=== PATIENT | male | born 1970 | race Caucasian/White ===

== ENCOUNTER 2022-01-05 06:18 | Emergency (ER) | payer MEDICARE, MEDICAID, OTHER, SELFPAY ==
--- NOTE | ~2022-01-05 | XR_ITS ---
EXAMINATION: CR RIGHT ANKLE. CR RIGHT KNEE. CLINICAL INFORMATION: Fall. Pain. COMPARISON: None TECHNIQUE: 3 views of the right ankle. 4 views of the right knee. FINDINGS: Right ankle: Mild diffuse soft tissue swelling is seen over the ankle, more pronounced on the medial aspect. No ankle joint effusion is noted. No definite acute fracture or dislocation is seen. The ankle mortise is symmetric with mild degenerative changes seen in the tibiotalar joint. No radiopaque foreign body in the soft tissues. Right knee: No acute fracture or dislocation. No significant knee joint effusion. Mild enthesopathic spurring at the superior pole of the patella. Joint space height well maintained in all 3 compartments. XR/XR ankle RT 2V IMPRESSION: 1. No acute fracture of the right ankle or right knee. 2. Mild soft tissue swelling over the right ankle, more pronounced on the medial aspect.
--- NOTE | ~2022-01-05 | XR_ITS ---
EXAMINATION: CR RIGHT ANKLE. CR RIGHT KNEE. CLINICAL INFORMATION: Fall. Pain. COMPARISON: None TECHNIQUE: 3 views of the right ankle. 4 views of the right knee. FINDINGS: Right ankle: Mild diffuse soft tissue swelling is seen over the ankle, more pronounced on the medial aspect. No ankle joint effusion is noted. No definite acute fracture or dislocation is seen. The ankle mortise is symmetric with mild degenerative changes seen in the tibiotalar joint. No radiopaque foreign body in the soft tissues. Right knee: No acute fracture or dislocation. No significant knee joint effusion. Mild enthesopathic spurring at the superior pole of the patella. Joint space height well maintained in all 3 compartments. XR/XR knee RT 3V IMPRESSION: 1. No acute fracture of the right ankle or right knee. 2. Mild soft tissue swelling over the right ankle, more pronounced on the medial aspect.
[2022-01-05 06:38] VITALS: BP 125/52; PULSE 81; RESP 16; TEMP 37; O2SAT 100; BMI 27.8
[2022-01-05 06:57] LABS: Hematocrit 30.7 % (42.0-52.0); Hemoglobin 9.8 g/dl (14.0-18.0); Mean Corpuscular HGB Conc 31.9 g/dl (31.0-36.0); Mean Corpuscular Hemoglobin 23.2 pg (27.0-33.0); Mean Corpuscular Volume 72.6 fL (80.0-98.0); Mean Platelet Volume 9.5 fL (9.4-12.4); Platelet Count 166 X10*3/uL (160-400); Red Blood Count 4.23 X10*6/uL (4.60-5.80); Red Cell Distribution Width 18.3 % (11.0-16.0); White Blood Count 9.2 X10*3/uL (4.8-10.8)
[2022-01-05 07:15] LABS: Lactic Acid 1.8 mmol/L (0.5-2.0)
[2022-01-05 07:35] LABS: Alanine Aminotransferase 12 U/L (0-40); Albumin Level 3.5 g/dL (3.5-5.0); Alkaline Phosphatase 123 U/L (39-117); Anion Gap 14 (12-20); Aspartate Amino Transferase 14 U/L (5-37); Bilirubin Total 1.2 mg/dL (0.0-1.0); Blood Urea Nitrogen 14 mg/dL (9-16); Calcium 9.4 mg/dL (8.4-10.2); Carbon Dioxide 24 mmol/L (22-29); Chloride 97 mmol/L (96-108); Creatinine Clr Calc Pharmacy 89.8; Estimated Glomerular Filt Rate > 60; Glucose Random 337 mg/dL (60-115); Potassium 4.1 mmol/L (3.3-5.1); Sodium 131 mmol/L (135-145); Total Protein 7.6 g/dL (6.5-8.0)
--- NOTE | 2022-01-05 08:09 | ED.LOWEXIN ---
HPI - Extremity Injury (Lower) General Chief Complaint: Extremity Injury, Lower Stated Complaint: r leg knee ankle pain fell two days ago Time Seen by Provider: 01/05/22 07:34 Source: patient Mode of arrival: ambulatory Limitations: no limitations History of Present Illness HPI Narrative: 51-year-old male who tripped and fell twisting her right ankle and landing on the right knee presented with pain to the right ankle with swelling, patient declined any fever chills, patient also noticed hotness and redness around the right ankle. No head or neck pain or injury. Related Data Previous Rx's Medication Instructions Recorded doxycycline hyclate 100 mg tablet 100 mg PO BID #20 tabs 01/05/22 oxycodone 5 mg tablet 5 mg PO BID PRN pain #8 tabs 01/05/22 Allergies Allergy/AdvReac Type Severity Reaction Status Date / Time No Known Allergies Allergy Unverified 11/10/19 15:49 [No Known Allergies*] Review of Systems Review of Systems: All other systems are reviewed and are negative Constitutional: Reports as per HPI and Reports no additional constitutional complaints Eyes: Reports as per HPI and Reports no additional eye complaints Reports system reviewed and no additional complaints, except as documented Cardiovascular: Reports as per HPI and Reports no additional cardiovascular complaints Respiratory: Reports as per HPI and Reports no additional respiratory complaints Gastrointestinal: Reports as per HPI and Reports no additional gastrointestinal complaints Genitourinary: Reports no additional female genitourinary complaints Musculoskeletal: Reports no additional musculoskeletal complaints Skin/Breast: Reports system reviewed and no additional complaints, except as docu Psychiatric: Reports no additional psychiatric complaints Endocrine: Reports no additional endocrine complaints Hematologic/Lymphatic: Reports no additional hematologic/lymphatic complaints Allergic/Immunologic: Reports no additional allergic/immunologic complaints Reports system reviewed and no additional complaints, except as documented and Reports Abnormal speech present [facility] Social History Social History Alcohol intake: former Smoked in Last 30 Days: Yes Advance Directives: No Advance Directives Information Provided: Yes Physical Exam Vital Signs: Vital Signs: Last Vital Signs Temp 98.0 F 01/05/22 08:35 Pulse 78 01/05/22 08:35 Resp 18 01/05/22 08:35 BP 121/50 L 01/05/22 08:35 Pulse Ox 99 01/05/22 08:35 O2 Del Method 01/05/22 08:35 BMI result Body Mass Index 27.8 Vital signs have been reviewed as appeared to be correct. Blood pressure normal. Heart rate normal. Respiration rate normal. Temperature normal. Oxygen saturation normal. Appearance: Alert. Oriented X3. No acute distress. Head: Normal external exam. Normocephalic. Atraumatic. No Bennett signs noted. No raccoon eyes noted Eyes: PERRLA. EOMI. Conjunctiva and sclera normal. Eyelids normal. ENT: TM's Normal. Pharynx normal. Uvula midline. Moist mucous membranes. No trismus noted. No drooling noted. No muffled voice noted. Neck: Normal inspection. Neck supple. FROM. No adenopathy. Thyroid Normal. No meningeal signs. No neck mass noted. CVS: Normal heart rate and rhythm. Heart sound normal. No murmurs noted. Pulses normal throughout. Respiratory: No respiratory distress. Painless inspiration. Breath sounds normal. No wheezes/rales/rhonchi noted. Chest nontender. No accessory muscle usage noted or decreased air movement noted. Abdomen: Soft and nontender. Bowel sounds normal in all 4 quadrants. No distention noted. No organomegaly noted. No visible injury noted. Back: No CVA tenderness. Full range of motion noted. Skin: Skin warm and dry. Normal skin color. Normal skin turgor. No rashes/lesions/lacerations noted. Extremities: Right knee: Mild tenderness of her patella, no step-off, no deformity, no swelling or joint effusion. Right ankle, swelling redness, and hotness of the right ankle no deformity, no step-off, neurovascularly intact. Neuro: Oriented X 3. Cranial nerve exam: II-XII are grossly intact No motor deficit. No sensory deficit. Reflexes normal. Course Course Course Narrative: 51-year-old male status post fall with right ankle twist patient is not known to be diabetic, have a right ankle cellulitis will start patient on antibiotic doxycycline and pain medication oxycodone. Patient is not known to be diabetic foot blood sugar found to be 337 patient was instructed to follow-up with his PCP for further workup for diabetes. Medications Administered Discontinued Medications Generic Name Dose Route Start Last Admin Trade Name Freq PRN Reason Stop Dose Admin Doxycycline Monohydrate 100 mg 01/05/22 08:06 01/05/22 08:34 Doxycycline Monohydrate 100 Mg Capsule PO 01/05/22 08:07 100 mg ONCE ONE Administration Oxycodone HCl 5 mg 01/05/22 08:06 01/05/22 08:33 Oxycodone Hcl Immed Release 5 Mg Tablet PO 01/05/22 08:07 5 mg ONCE ONE Administration MDM - Extremity Injury (Lower) Lab Data Attestation: I reviewed the patient's lab results. Result diagrams: 01/05/22 06:49 01/05/22 06:49 Labs: Lab Results 01/05/22 01/05/22 01/05/22 Range/Units 06:49 06:49 06:49 WBC 9.2 (4.8-10.8) X10*3/uL RBC 4.23 L (4.60-5.80) X10*6/uL Hgb 9.8 L (14.0-18.0) g/dl Hct 30.7 L (42.0-52.0) % MCV 72.6 L (80.0-98.0) fL MCH 23.2 L (27.0-33.0) pg MCHC 31.9 (31.0-36.0) g/dl RDW 18.3 H (11.0-16.0) % Plt Count 166 (160-400) X10*3/uL MPV 9.5 (9.4-12.4) fL Absolute Nucleated RBC 0.000 (0.0-0.012) X10*3/uL Nucleated RBC % (auto) 0.0 (0.0-0.2) /100WBC Sodium 131 L (135-145) mmol/L Potassium 4.1 (3.3-5.1) mmol/L Chloride 97 (96-108) mmol/L Carbon Dioxide 24 (22-29) mmol/L Anion Gap 14 (12-20) BUN 14 (9-16) mg/dL Creatinine 1.08 (0.5-1.4) mg/dL Estim Creat Clear Calc 89.8 Estimated GFR > 60 Random Glucose 337 H (60-115) mg/dL Lactic Acid 1.8 (0.5-2.0) mmol/L Calcium 9.4 (8.4-10.2) mg/dL Total Bilirubin 1.2 H (0.0-1.0) mg/dL AST 14 (5-37) U/L ALT 12 (0-40) U/L Alkaline Phosphatase 123 H (39-117) U/L Total Protein 7.6 (6.5-8.0) g/dL Albumin 3.5 (3.5-5.0) g/dL Imaging Data Right knee/ankle x-ray: Attestation: I personally reviewed and interpreted this imaging study as follows: Radiologist's impression: 1.? No acute fracture of the right ankle or right knee. 2.? Mild soft tissue swelling over the right ankle, more pronounced on the medial aspect. ? Discharge Plan Discharge Clinical Impression: Ankle sprain and strain, Cellulitis of right ankle, Contusion of knee, Hyperglycemia Patient Disposition: Home, Self-Care Instructions: Ankle Sprain (ED), Cellulitis (ED) Prescriptions: New doxycycline hyclate 100 mg tablet 100 mg PO BID Qty: 20 0RF oxycodone 5 mg tablet 5 mg PO BID PRN (Reason: pain) Qty: 8 0RF Rx Instructions: Partial Fill upon patient request. Referrals: Junaid Mckeon MD [Primary Care Provider] -
[2022-01-05] MEDS: oxyCODONE HCl Immed Release 5 MG TABLET PO (08:33)
[2022-01-05] MEDS: Doxycycline Monohydrate 100 MG CAPSULE PO (08:34)
[2022-01-05 08:35] VITALS: BP 121/50; PULSE 78; RESP 18; TEMP 36.7; O2SAT 99
--- NOTE | 2022-01-05 08:42 | PC.NURSE ---
patient a/ox4 . tiorla . heart rate regular at 70 beats per minute . lungs clear throughout , breathing even and unlabored . abdomen soft . rebounded tenderness noted in lower right side . patient has a hx of cirrhosis . postive bowel sounds in all four quadrants . right lower ankle leg and ankle red swollen and warm to touch patient reports that it has been like this for three days and progressively getting worse . labs and cultures sent . patient has been medicated with antibiotic and oxycodone for pain level of 8 out of 10 pain level . patient aware of plan of care .
--- NOTE | 2022-01-05 10:57 | PC.NURSE ---
patient a/ox4 . breathing even and unlabored . went over discharge instructions as ordered by provider . patient informed to complete course of antibiotics as prescribed . patient to follow up with primary care . patient to return to Ed if symptoms worsen . no questions at this time .
== END 2022-01-05 11:02 | disposition home or self-care (01) ==
PROVIDERS: Emergency Provider Emergency Medicine; PCP Internal Medicine
DX: S93.401A Sprain of unspecified ligament of right ankle, initial encounter (principal); M25.571 Pain in right ankle and joints of right foot; L03.115 Cellulitis of right lower limb; E11.65 Type 2 diabetes mellitus with hyperglycemia; M25.561 Pain in right knee; X50.1XXA Overexertion from prolonged static or awkward postures, initial encounter; Y93.9 Activity, unspecified; Y92.9 Unspecified place or not applicable; Y99.9 Unspecified external cause status; Z79.899 Other long term (current) drug therapy
CPT/HCPCS: 36415; 73562; 73600; 80053; 83605; 85027; 87040; 99284

== ENCOUNTER 2022-03-06 19:08 | Emergency (ER) | payer MEDICARE, OTHER, SELFPAY ==
--- NOTE | 2022-03-06 19:12 | ED_ITS ---
HPI - General Adult General Chief complaint: General Medical Stated complaint: High BS(595) per EMS Time Seen by Provider: 03/06/22 19:12 Source: patient Mode of arrival: ambulatory Limitations: no limitations History of Present Illness HPI narrative: Patient's history of alcoholic cirrhosis was seen here on 01/05/2022 for foot fracture at that time blood sugar was 337 patient advised to follow-up with PCP today patient had labs done which showed blood sugar of 659 patient been complaining of weakness for take increased thirst and urination on arrival patient's blood sugar was 417 patient denied any abdominal pain no use of steroids Related Data Previous Rx's Medication Instructions Recorded doxycycline hyclate 100 mg tablet 100 mg PO BID #20 tabs 01/05/22 oxycodone 5 mg tablet 5 mg PO BID PRN pain #8 tabs 01/05/22 blood-glucose meter #1 ea 03/06/22 gabapentin 300 mg capsule 300 mg PO BID #60 caps 03/06/22 (Neurontin) glipizide 10 mg tablet, extended 10 mg PO DAILY #30 tabs 03/06/22 release 24 hr metformin 500 mg tablet 500 mg PO BID #60 tabs 03/06/22 Allergies Allergy/AdvReac Type Severity Reaction Status Date / Time No Known Allergies Allergy Verified 03/06/22 19:28 [No Known Allergies*] Review of Systems Review of Systems: Yes all other systems are reviewed and are negative [facility] Past Medical History Medical History Alcoholic cirrhosis Diabetes mellitus Neuropathy Social History Social History Alcohol intake: former Smoked in Last 30 Days: Yes Use of substances other than those prescribed or required for medical reasons: Yes Substance Use Type: Marijuana Advance Directives: No Advance Directives Information Provided: No Physical Exam ED Vital Signs: Vital Signs - 24 hr 03/06/22 19:18 03/06/22 21:07 Temperature 98.1 F Pulse Rate 67 65 Respiratory Rate 20 16 Blood Pressure 133/69 125/55 L Pulse Oximetry 97 97 Oxygen Delivery Method Room Air Room Air BMI result Body Mass Index 31.1 Appearance: Alert. Oriented X3. No acute distress. Eyes: PERRLA, No Nystagmus ENT: Pharynx normal. Oral Mucosa moist Neck: Normal inspection. Neck supple. CVS: Normal heart rate and rhythm. Pulses normal. Respiratory: No respiratory distress. Equal air entry bilateral, no wheezing/rales/rhonchi Abdomen: Soft and nontender. Bowel sounds are present, no mass palpable, no CVA tenderness Skin: Skin warm and dry. Normal skin color. Normal skin turgor. Extremities: No lower extremity edema. No calf tenderness Neuro: Oriented X 3. No motor deficit. No sensory deficit.No cerebellar signs , cranial nerves II-XII intact Medications Administered Discontinued Medications Generic Name Dose Route Start Last Admin Trade Name Freq PRN Reason Stop Dose Admin Sodium Chloride 1,000 mls @ 999 mls/hr 03/06/22 19:39 03/06/22 21:01 Ns IV 03/06/22 20:39 Infused .Q1H1M ONE Infusion Insulin Glargine 20 unit 03/06/22 19:39 03/06/22 19:52 Insulin Glargine,Hum.Rec.Anlog 100 Unit/Ml 10 Ml Vial SUBCUT 03/06/22 19:40 20 unit ONCE ONE Administration Insulin Human Lispro 14 unit 03/06/22 19:39 03/06/22 19:52 Insulin Lispro 100 Unit/Ml 3 Ml Vial SUBCUT 03/06/22 19:40 14 unit ONCE ONE Administration Metformin HCl 500 mg 03/06/22 21:00 03/06/22 21:05 Metformin Hcl 500 Mg Tablet PO 03/06/22 21:01 500 mg ONCE ONE Administration Medical Decision Making Medical Decision Making [facility] Narrative: Patient with new onset diabetes with hyperglycemia nonketotic was given insulin and fluids blood sugar improved to 371 patient was given oral hypoglycemic metformin advised to follow up with PCP Lab Data [facility] Lab Attestation statement: I reviewed the patient's lab results. 03/06/22 19:52 03/06/22 19:52 Labs: Lab Results 03/06/22 03/06/22 03/06/22 Range/Units 19:20 19:52 19:52 WBC 7.8 (4.8-10.8) X10*3/uL RBC 4.20 L (4.60-5.80) X10*6/uL Hgb 9.5 L (14.0-18.0) g/dl Hct 30.0 L (42.0-52.0) % MCV 71.4 L (80.0-98.0) fL MCH 22.6 L (27.0-33.0) pg MCHC 31.7 (31.0-36.0) g/dl RDW 15.4 (11.0-16.0) % Plt Count 202 (160-400) X10*3/uL MPV 9.9 (9.4-12.4) fL Immature Gran % (Auto) 0.1 (0.0-0.4) % Neut % (Auto) 66.5 (45-73) % Lymph % (Auto) 19.8 L (20-40) % Piute % (Auto) 11.8 H (2-11) % Eos % (Auto) 1.2 (0-4) % Baso % (Auto) 0.6 (0-2) % Lymph # (Auto) 1.5 (1.2-4.9) X10*3/uL Piute # (Auto) 0.9 (0.1-1.2) X10*3/uL Eos # (Auto) 0.1 (0.0-0.4) X10*3/uL Baso # (Auto) 0.1 (0.0-0.2) X10*3/uL Abs Immat Gran (auto) 0.01 (0.00-0.03) X10*3/uL Absolute Neuts (auto) 5.2 (2.0-8.3) x10*3/uL Absolute Nucleated RBC 0.000 (0.0-0.012) X10*3/uL Nucleated RBC % (auto) 0.0 (0.0-0.2) /100WBC Sodium 130 L (135-145) mmol/L Potassium 4.4 (3.3-5.1) mmol/L Chloride 97 (96-108) mmol/L Carbon Dioxide 24 (22-29) mmol/L Anion Gap 13 (12-20) BUN 13 (9-16) mg/dL Creatinine 1.25 (0.5-1.4) mg/dL Estim Creat Clear Calc 88.2 Estimated GFR > 60 POC Glucose 417 H* (60-115) mg/dL Random Glucose 468 H* (60-115) mg/dL Calcium 8.9 (8.4-10.2) mg/dL Total Bilirubin 1.1 H (0.0-1.0) mg/dL AST 21 (5-37) U/L ALT 14 (0-40) U/L Alkaline Phosphatase 115 (39-117) U/L Total Protein 7.4 (6.5-8.0) g/dL Albumin 3.3 L (3.5-5.0) g/dL Lipase 20 (8-78) U/L 03/06/22 Range/Units 20:28 WBC (4.8-10.8) X10*3/uL RBC (4.60-5.80) X10*6/uL Hgb (14.0-18.0) g/dl Hct (42.0-52.0) % MCV (80.0-98.0) fL MCH (27.0-33.0) pg MCHC (31.0-36.0) g/dl RDW (11.0-16.0) % Plt Count (160-400) X10*3/uL MPV (9.4-12.4) fL Immature Gran % (Auto) (0.0-0.4) % Neut % (Auto) (45-73) % Lymph % (Auto) (20-40) % Piute % (Auto) (2-11) % Eos % (Auto) (0-4) % Baso % (Auto) (0-2) % Lymph # (Auto) (1.2-4.9) X10*3/uL Piute # (Auto) (0.1-1.2) X10*3/uL Eos # (Auto) (0.0-0.4) X10*3/uL Baso # (Auto) (0.0-0.2) X10*3/uL Abs Immat Gran (auto) (0.00-0.03) X10*3/uL Absolute Neuts (auto) (2.0-8.3) x10*3/uL Absolute Nucleated RBC (0.0-0.012) X10*3/uL Nucleated RBC % (auto) (0.0-0.2) /100WBC Sodium (135-145) mmol/L Potassium (3.3-5.1) mmol/L Chloride (96-108) mmol/L Carbon Dioxide (22-29) mmol/L Anion Gap (12-20) BUN (9-16) mg/dL Creatinine (0.5-1.4) mg/dL Estim Creat Clear Calc Estimated GFR POC Glucose 371 H* (60-115) mg/dL Random Glucose (60-115) mg/dL Calcium (8.4-10.2) mg/dL Total Bilirubin (0.0-1.0) mg/dL AST (5-37) U/L ALT (0-40) U/L Alkaline Phosphatase (39-117) U/L Total Protein (6.5-8.0) g/dL Albumin (3.5-5.0) g/dL Lipase (8-78) U/L Discharge Plan Discharge Clinical Impression: Diabetes mellitus Patient Disposition: Home, Self-Care Instructions: Type 2 Diabetes in Adults: New Diagnosis (ED) Additional Instructions: Drink plenty of fluids Take diabetic medication as prescribed diet restrictions advised Check blood sugar twice daily Report to the ER/PCP blood sugar higher than 300 Follow-up with diabetic specialist Prescriptions: New metformin 500 mg tablet 500 mg PO BID Qty: 60 2RF glipizide 10 mg tablet extended release 24hr 10 mg PO DAILY Qty: 30 2RF (DME) blood-glucose meter Kit See Rx Instructions .Route Qty: 1 0RF Rx Instructions: As directed gabapentin [Neurontin] 300 mg capsule 300 mg PO BID Qty: 60 2RF No Action doxycycline hyclate 100 mg tablet 100 mg PO BID Qty: 20 0RF oxycodone 5 mg tablet 5 mg PO BID PRN (Reason: pain) Qty: 8 0RF Rx Instructions: Partial Fill upon patient request. Referrals: Lexi Juares MD [Physician] - 3 days Interventions: ED Discharge Assessment Last Done: 03/06/22 21:13 Discharge Date/Time: 03/06/22 21:15
[2022-03-06 19:18] VITALS: BP 122/46; BP 133/69; PULSE 67; PULSE 70; RESP 20; TEMP 36.7; O2SAT 100; O2SAT 97; BMI 31.1
[2022-03-06 19:24] LABS: Glucose, Whole Blood 417 mg/dL (60-115)
[2022-03-06] MEDS: Insulin Lispro 100 UNIT/ML 3 ML VIAL 14 UNIT SUBCUT (19:52)
[2022-03-06] MEDS: 0.9 % Sodium Chloride 1,000 ML 999 ML IV (19:52)
[2022-03-06] MEDS: Insulin Glargine,Hum.rec.anlog 100 UNIT/ML 10 ML VIAL 20 UNIT SUBCUT (19:52)
[2022-03-06 19:56] LABS: MANUAL DIFF FLAG NO
--- NOTE | 2022-03-06 20:01 | PC.NURSE ---
PT A&Ox4, reports 5/10 tolerable pain of pins and needles to hands and feet. States feeling cotton mouth for a few weeks and dry mouth . Meds given as documented.
[2022-03-06 20:02] LABS: Basophils Absolute Auto 0.1 X10*3/uL (0.0-0.2); Basophils Percent Auto 0.6 % (0-2); Eosinophils Absolute Auto 0.1 X10*3/uL (0.0-0.4); Eosinophils Percent Auto 1.2 % (0-4); Hemoglobin 9.5 g/dl (14.0-18.0); Imm Gran Abs Auto 0.01 X10*3/uL (0.00-0.03); Imm Gran Pct Auto 0.1 % (0.0-0.4); Lymphocytes Absolute Auto 1.5 X10*3/uL (1.2-4.9); Lymphocytes Percent Auto 19.8 % (20-40); Mean Corpuscular HGB Conc 31.7 g/dl (31.0-36.0); Mean Corpuscular Hemoglobin 22.6 pg (27.0-33.0); Mean Corpuscular Volume 71.4 fL (80.0-98.0); Mean Platelet Volume 9.9 fL (9.4-12.4); Monocytes Absolute Auto 0.9 X10*3/uL (0.1-1.2); Monocytes Percent Auto 11.8 % (2-11); Neutrophils Absolute Auto 5.2 x10*3/uL (2.0-8.3); Neutrophils Percent Auto 66.5 % (45-73); Platelet Count 202 X10*3/uL (160-400); Red Cell Distribution Width 15.4 % (11.0-16.0); White Blood Count 7.8 X10*3/uL (4.8-10.8)
[2022-03-06 20:24] LABS: Alanine Aminotransferase 14 U/L (0-40); Albumin Level 3.3 g/dL (3.5-5.0); Alkaline Phosphatase 115 U/L (39-117); Anion Gap 13 (12-20); Aspartate Amino Transferase 21 U/L (5-37); Bilirubin Total 1.1 mg/dL (0.0-1.0); Blood Urea Nitrogen 13 mg/dL (9-16); Calcium 8.9 mg/dL (8.4-10.2); Carbon Dioxide 24 mmol/L (22-29); Chloride 97 mmol/L (96-108); Creatinine Clr Calc Pharmacy 88.2; Estimated Glomerular Filt Rate > 60; Glucose Random 468 mg/dL (60-115); Lipase 20 U/L (8-78); Potassium 4.4 mmol/L (3.3-5.1); Sodium 130 mmol/L (135-145); Total Protein 7.4 g/dL (6.5-8.0)
--- NOTE | 2022-03-06 20:29 | PC.NURSE ---
Recheck POC 371. Provider notified. No new orders at this time.
[2022-03-06 20:31] LABS: Glucose, Whole Blood 371 mg/dL (60-115)
[2022-03-06] MEDS: metFORMIN HCl 500 MG TABLET PO (21:05)
[2022-03-06 21:07] VITALS: BP 125/55; PULSE 65; RESP 16; O2SAT 97
== END 2022-03-06 21:15 | disposition home or self-care (01) ==
PROVIDERS: Emergency Provider Internal Medicine
DX: E11.65 Type 2 diabetes mellitus with hyperglycemia (principal); G62.9 Polyneuropathy, unspecified; F10.20 Alcohol dependence, uncomplicated; K70.30 Alcoholic cirrhosis of liver without ascites; F12.90 Cannabis use, unspecified, uncomplicated
CPT/HCPCS: 36415; 80053; 82947; 83690; 85025; 96360; 99284